=== PATIENT | female | born 1985 | race American Indian/Alaskan Native ===

== ENCOUNTER 2017-05-17 22:58 | Inpatient (IN) | payer BC ==
[2017-05-18 01:03] LABS: Basophils % (Auto) 0.7 % (0.0-1.8); Eosinophils % (Auto) 6.8 % (0.0-4.3); Hematocrit 44.5 % (30.3-42.9); Hemoglobin 14.4 gm/dl (10.1-14.3); Mean Corpuscular HGB Conc 32 % (30-34); Mean Corpuscular Hemoglobin 33 pg (28-32); Mean Corpuscular Volume 101 fl (79-97); Platelet Count 155 K/mm3 (140-440); Red Blood Count 4.42 M/mm3 (3.65-5.03); Red Cell Distribution Width 13.6 % (13.2-15.2); White Blood Count 11.6 K/mm3 (4.5-11.0)
[2017-05-18 01:28] LABS: BUN/Creatinine Ratio 26.66; Blood Urea Nitrogen 16 mg/dL (7-17); Calcium 9.3 mg/dL (8.4-10.2); Carbon Dioxide 17 mmol/L (22-30); Glucose 123 mg/dL (65-100); Sodium 135 mmol/L (137-145)
[2017-05-18 01:51] LABS: Anion Gap 21 mmol/L; Potassium 5.5 mmol/L (3.6-5.0)
[2017-05-18] MEDS ORDERED: DILAUDID IV ONE ×4 (06:37→11:45)
[2017-05-18] MEDS ORDERED: NACL 0.9% 1000 ML 1,000 ML IV ONE ×2 (06:37→09:18)
[2017-05-18] MEDS ORDERED: ZOFRAN IV ONE ×2 (06:37→08:52)
[2017-05-18 07:13] LABS: BUN/Creatinine Ratio 21.66; Blood Urea Nitrogen 13 mg/dL (7-17); Calcium 9.1 mg/dL (8.4-10.2); Carbon Dioxide 26 mmol/L (22-30); Chloride 101.1 mmol/L (98-107); Glucose 108 mg/dL (65-100); Potassium 4.2 mmol/L (3.6-5.0); Sodium 140 mmol/L (137-145)
[2017-05-18] MEDS ORDERED: NACL ONE (07:13)
[2017-05-18 07:23] LABS: Anion Gap 17 mmol/L
--- NOTE | 2017-05-18 07:24 | Emergency Department Report ---
ED GI Bleed HPI - General Chief complaint: GI Bleed Stated complaint: RECTAL BLEEDING/ABD PAIN Time Seen by Provider: 05/18/17 06:16 Source: patient Mode of arrival: Ambulatory Limitations: No Limitations - History of Present Illness Initial comments: 31-year-old female with a past medical history GERD, IBS, 2 and salpingectomy presents to the hospital with complaints of rectal bleeding, abdominal pain, and constipation. Patient has been suffering from intermittent constipation and rectal bleeding 2 months and has been out of emergency departments. Today patient saw Dr. Fang GI specialist and was prescribed Metamucil and Colace for constipation. Patient had 2 small hard bowel movements after taking the medication that were bloody. The patient continued to have bright red blood per rectum with passage of gas but no stool patient called her GI doctor was advised to come to the ER for evaluation.. Patient complains of burning constant lower abdominal pain that is moderate to severe in intensity. Pain is worse with palpation and movement. No relieving factors. No nausea, vomiting, or fever Severity scale (0 -10): 8 - Related Data Previous Rx's Medication Instructions Recorded Last Taken Type ALBUTEROL Inhaler [ProAir HFA 2 puff IH QID PRN #1 inhalation 05/05/14 Unknown Rx Inhaler] Albuterol *Only Ed* [Proventil 2.5 mg IH Q4H PRN #1 box 05/05/14 Unknown Rx 0.5% NEBS] Prednisone [Prednisone 10 mg 10 mg PO .TAPER #1 tab.ds.pk 05/05/14 Unknown Rx (6-Day Pack, 21 Tabs)] Ibuprofen [Motrin 600 MG tab] 600 mg PO Q8H PRN #20 tablet 06/18/15 Unknown Rx Allergies Allergy/AdvReac Type Severity Reaction Status Date / Time Penicillins Allergy Swelling Verified 05/05/14 14:54 ED Review of Systems ROS: Stated complaint: RECTAL BLEEDING/ABD PAIN Other details as noted in HPI Comment: All other systems reviewed and negative Other: Constitutional: No fevers chills or weight loss Eyes: No eye pain visual changes or discharge ENT: No ear pain or throat pain Neck: Denies pain Respiratory: Denies cough wheezing shortness of breath Cardiovascular: Denies chest pain, palpitations, syncope GI: Positive rectal pain Musculoskeletal: Denies back pain Skin: Denies rash, lesions, erythema Neurologic: Denies headache, numbness, weakness Psychiatric: Denies suicidal ideation, hallucinations ED Past Medical Hx - Past Medical History Hx Asthma: Yes Additional medical history: GERD. IBS - Surgical History Additional Surgical History: x 2, both tubes removed. Adrenal tumor removal - Social History Smoking Status: Current Every Day Smoker Substance Use Type: Alcohol - Medications Home Medications: Home Medications Medication Instructions Recorded Confirmed Last Taken Type ALBUTEROL Inhaler [ProAir HFA 2 puff IH QID PRN #1 inhalation 05/05/14 Unknown Rx Inhaler] Albuterol *Only Ed* [Proventil 2.5 mg IH Q4H PRN #1 box 05/05/14 Unknown Rx 0.5% NEBS] Prednisone [Prednisone 10 mg 10 mg PO .TAPER #1 tab.ds.pk 05/05/14 Unknown Rx (6-Day Pack, 21 Tabs)] Ibuprofen [Motrin 600 MG tab] 600 mg PO Q8H PRN #20 tablet 06/18/15 Unknown Rx ED Physical Exam - General Limitations: No Limitations - Other Other exam information: General: No limitations, patient is alert in no acute distress Head exam: Atraumatic, normocephalic Eyes exam: Normal appearance, pupils equal reactive to light, extraocular movements intact ENT: Moist mucous membrane, normal oropharynx Neck exam: Normal inspection, full range of motion, no meningismus nontender Respiratory exam: Clear to auscultation bilateral, no wheezes, rales, crackles Cardiovascular: Normal rate and rhythm, normal heart sounds Abdomen: Soft, positive distention, generalized abdominal tenderness worse in the lower abdomen, with normal bowel sounds, no rebound, or guarding Rectal: Positive significant anal pain with examination. Did not visualize anal fissure. She cannot tolerate digital examination. Brown stool obtained at the outside of the anus that was guaiac positive. Extremity: Full range of motion normal inspection no deformity Back: Normal Inspection, full range of motion, no tenderness Neurologic: Alert, oriented x3, cranial nerves intact, no motor or sensory deficit Psychiatric: normal affect, normal mood Skin: Warm, dry, intact ED Course Vital Signs 05/18/17 05/18/17 05/18/17 06:07 06:35 08:59 Pulse Rate 67 71 64 Respiratory 14 15 12 Rate Blood Pressure 102/58 Blood Pressure 95/31 97/58 [Left] O2 Sat by Pulse 98 100 100 Oximetry 05/18/17 05/18/17 05/18/17 09:00 09:01 09:03 Pulse Rate 59 L 61 62 Respiratory 15 18 17 Rate Blood Pressure 93/49 93/49 93/49 Blood Pressure [Left] O2 Sat by Pulse 100 100 100 Oximetry 05/18/17 05/18/17 05/18/17 09:05 09:07 09:09 Pulse Rate 66 66 74 Respiratory 18 17 12 Rate Blood Pressure 93/49 93/49 102/57 Blood Pressure [Left] O2 Sat by Pulse 100 100 100 Oximetry 05/18/17 05/18/17 05/18/17 09:10 09:11 09:13 Pulse Rate 61 66 61 Respiratory 16 10 L 19 Rate Blood Pressure 102/57 102/57 102/57 Blood Pressure [Left] O2 Sat by Pulse 100 100 100 Oximetry 05/18/17 05/18/17 05/18/17 09:15 09:17 09:19 Pulse Rate 65 60 88 Respiratory 18 17 16 Rate Blood Pressure 102/57 102/57 102/57 Blood Pressure [Left] O2 Sat by Pulse 99 100 100 Oximetry 05/18/17 05/18/17 05/18/17 09:21 09:23 09:25 Pulse Rate 64 66 64 Respiratory 18 18 14 Rate Blood Pressure 102/57 102/57 102/57 Blood Pressure [Left] O2 Sat by Pulse 100 99 100 Oximetry 05/18/17 05/18/17 05/18/17 09:27 09:29 09:31 Pulse Rate 60 68 65 Respiratory 16 16 15 Rate Blood Pressure 102/57 102/57 102/57 Blood Pressure [Left] O2 Sat by Pulse 100 99 99 Oximetry 05/18/17 05/18/17 05/18/17 09:33 09:35 09:37 Pulse Rate 71 68 71 Respiratory 17 16 15 Rate Blood Pressure 102/57 102/57 102/57 Blood Pressure [Left] O2 Sat by Pulse 98 99 99 Oximetry 05/18/17 05/18/17 05/18/17 09:39 09:41 09:43 Pulse Rate 67 79 77 Respiratory 16 15 16 Rate Blood Pressure 102/57 102/57 102/57 Blood Pressure [Left] O2 Sat by Pulse 100 99 99 Oximetry 05/18/17 05/18/17 05/18/17 09:45 09:47 09:49 Pulse Rate 71 72 68 Respiratory 12 16 13 Rate Blood Pressure 102/57 102/57 102/57 Blood Pressure [Left] O2 Sat by Pulse 99 99 99 Oximetry 05/18/17 05/18/17 05/18/17 09:51 09:53 09:55 Pulse Rate 76 70 89 Respiratory 19 17 14 Rate Blood Pressure 102/57 102/57 102/57 Blood Pressure [Left] O2 Sat by Pulse 86 100 89 Oximetry 05/18/17 05/18/17 05/18/17 09:56 09:57 09:59 Pulse Rate 68 57 L 68 Respiratory 16 17 17 Rate Blood Pressure 102/57 102/57 102/57 Blood Pressure [Left] O2 Sat by Pulse 100 99 99 Oximetry 05/18/17 05/18/17 05/18/17 10:00 10:01 10:03 Pulse Rate 66 64 69 Respiratory 15 16 16 Rate Blood Pressure 101/54 101/54 101/54 Blood Pressure [Left] O2 Sat by Pulse 99 99 99 Oximetry 05/18/17 05/18/17 05/18/17 10:05 10:07 10:09 Pulse Rate 61 67 61 Respiratory 14 16 14 Rate Blood Pressure 101/54 101/54 101/54 Blood Pressure [Left] O2 Sat by Pulse 98 98 100 Oximetry 05/18/17 05/18/17 05/18/17 10:11 10:13 10:15 Pulse Rate 65 65 66 Respiratory 13 16 17 Rate Blood Pressure 101/54 101/54 101/54 Blood Pressure [Left] O2 Sat by Pulse 99 99 99 Oximetry 05/18/17 05/18/17 05/18/17 10:17 10:19 10:21 Pulse Rate 65 64 69 Respiratory 14 14 13 Rate Blood Pressure 101/54 101/54 101/54 Blood Pressure [Left] O2 Sat by Pulse 100 99 99 Oximetry 05/18/17 05/18/17 05/18/17 10:23 10:25 10:27 Pulse Rate 66 59 L 61 Respiratory 12 15 15 Rate Blood Pressure 101/54 101/54 101/54 Blood Pressure [Left] O2 Sat by Pulse 100 100 99 Oximetry 05/18/17 10:29 Pulse Rate 56 L Respiratory 16 Rate Blood Pressure 101/54 Blood Pressure [Left] O2 Sat by Pulse 100 Oximetry - Reevaluation(s) Reevaluation #1: 05/18/17 07:23 Meds ordered Pain: Dilaudid 0.5 mg, Zofran Normal saline CT pending 05/18/17 12:07 pt continues to have significant pain despite was noted to Dilaudid, Levsin, and Zofran - Consultations Consultation #1: 05/18/17 12:07 Case D/w Yoder. Patient likely safe for discharge. Does not recommend narcotics. Levsin is recommended, Elavil 10mg qhs, and outpatient follow-up ED Medical Decision Making - Lab Data Result diagrams: 05/18/17 00:41 05/18/17 06:43 Lab Results 05/18/17 05/18/17 05/18/17 Range/Units 00:41 00:41 06:43 WBC 11.6 H (4.5-11.0) K/mm3 RBC 4.42 (3.65-5.03) M/mm3 Hgb 14.4 H (10.1-14.3) gm/dl Hct 44.5 H (30.3-42.9) % MCV 101 H (79-97) fl MCH 33 H (28-32) pg MCHC 32 (30-34) % RDW 13.6 (13.2-15.2) % Plt Count 155 (140-440) K/mm3 Lymph % (Auto) 38.2 H (13.4-35.0) % Cobb % (Auto) 8.7 H (0.0-7.3) % Eos % (Auto) 6.8 H (0.0-4.3) % Baso % (Auto) 0.7 (0.0-1.8) % Lymph # 4.4 (1.2-5.4) K/mm3 Cobb # 1.0 H (0.0-0.8) K/mm3 Eos # 0.8 H (0.0-0.4) K/mm3 Baso # 0.1 (0.0-0.1) K/mm3 Seg Neutrophils % 45.6 (40.0-70.0) % Seg Neutrophils # 5.3 (1.8-7.7) K/mm3 Sodium 135 L 140 (137-145) mmol/L Potassium 5.5 H 4.2 D (3.6-5.0) mmol/L Chloride 103.0 101.1 (98-107) mmol/L Carbon Dioxide 17 L 26 D (22-30) mmol/L Anion Gap 21 17 mmol/L BUN 16 13 (7-17) mg/dL Creatinine 0.6 L 0.6 L (0.7-1.2) mg/dL Estimated GFR > 60 > 60 ml/min BUN/Creatinine Ratio 26.66 21.66 % Glucose 123 H 108 H (65-100) mg/dL Calcium 9.3 9.1 (8.4-10.2) mg/dL HCG, Qual (Negative) Urine Color (Yellow) Urine Turbidity (Clear) Urine pH (5.0-7.0) Ur Specific [place] (1.003-1.030) Urine Protein (Negative) mg/dL Urine Glucose (UA) (Negative) mg/dL Urine Ketones (Negative) mg/dL Urine Blood (Negative) Urine Nitrite (Negative) Urine Bilirubin (Negative) Urine Urobilinogen (<2.0) mg/dL Ur Leukocyte Esterase (Negative) Urine WBC (Auto) (0.0-6.0) /HPF Urine RBC (Auto) (0.0-6.0) /HPF U Epithel Cells (Auto) (0-13.0) /HPF Urine Mucus /HPF Urine HCG, Qual (Negative) 05/18/17 05/18/17 Range/Units 06:43 09:00 WBC (4.5-11.0) K/mm3 RBC (3.65-5.03) M/mm3 Hgb (10.1-14.3) gm/dl Hct (30.3-42.9) % MCV (79-97) fl MCH (28-32) pg MCHC (30-34) % RDW (13.2-15.2) % Plt Count (140-440) K/mm3 Lymph % (Auto) (13.4-35.0) % Cobb % (Auto) (0.0-7.3) % Eos % (Auto) (0.0-4.3) % Baso % (Auto) (0.0-1.8) % Lymph # (1.2-5.4) K/mm3 [place] # (0.0-0.8) K/mm3 Eos # (0.0-0.4) K/mm3 Baso # (0.0-0.1) K/mm3 Seg Neutrophils % (40.0-70.0) % Seg Neutrophils # (1.8-7.7) K/mm3 Sodium (137-145) mmol/L Potassium (3.6-5.0) mmol/L Chloride (98-107) mmol/L Carbon Dioxide (22-30) mmol/L Anion Gap mmol/L BUN (7-17) mg/dL Creatinine (0.7-1.2) mg/dL Estimated GFR ml/min BUN/Creatinine Ratio % Glucose (65-100) mg/dL Calcium (8.4-10.2) mg/dL HCG, Qual Negative (Negative) Urine Color Straw (Yellow) Urine Turbidity Clear (Clear) Urine pH 6.0 (5.0-7.0) Ur Specific [place] 1.044 H (1.003-1.030) Urine Protein <15 mg/dl (Negative) mg/dL Urine Glucose (UA) Neg (Negative) mg/dL Urine Ketones Neg (Negative) mg/dL Urine Blood Neg (Negative) Urine Nitrite Neg (Negative) Urine Bilirubin Neg (Negative) Urine Urobilinogen < 2.0 (<2.0) mg/dL Ur Leukocyte Esterase Neg (Negative) Urine WBC (Auto) < 1.0 (0.0-6.0) /HPF Urine RBC (Auto) 1.0 (0.0-6.0) /HPF U Epithel Cells (Auto) 1.0 (0-13.0) /HPF Urine Mucus Few /HPF Urine HCG, Qual Negative (Negative) - Radiology Data Radiology results: report reviewed (CT abdomen and pelvis IV contrast: No acute process.) - Medical Decision Making I'm unable to control patient's pain will be treated. Although narcotics are not the best treatment for IBS patient is very uncomfortable in the ED. She is not responding to any other treatment. Therefore, she will be admitted to the hospital for further pain control - Differential Diagnosis IBS, Crohn's, colitis, anal fissure, hemorrhoids, diverticulosis Critical Care Time: No Critical care attestation.: If time is entered above; I have spent that time in minutes in the direct care of this critically ill patient, excluding procedure time. ED Disposition Clinical Impression: Intractable abdominal pain, Rectal pain, IBS (irritable bowel syndrome), Rectal bleed Disposition: OP ADMIT IP TO THIS HOSP Is pt being admited?: Yes Condition: Stable Time of Disposition: 12:07 (Dr Castro/hosp)
--- NOTE | 2017-05-18 08:12 | Cat Scan Report ---
FINAL REPORT EXAM: CT ABDOMEN PELVIS W CON HISTORY: rectal pain, abd pain, rectal bleed, ibs TECHNIQUE: CT images are acquired through the Abdomen and Pelvis in arterial and delayed phase following intravenous administration of contrast. Transaxial, coronal and sagittal reformations are provided. PRIORS: None FINDINGS: Partially visualized intrathoracic contents are unremarkable. A 6 millimeter calcification is present in the region of the atrophic/absent right adrenal gland. This finding may be secondary to remote hemorrhage. The liver, gallbladder, pancreas, spleen, and left adrenal gland are unremarkable. Kidneys show no worrisome lesions, hydronephrosis, or calculi. Urinary bladder is unremarkable. Small and large bowel are normal in caliber. Appendix is normal. No free air, free fluid, or lymphadenopathy identified. Aorta is normal in course and caliber.Anteverted uterus. No significant free fluid in the pelvis. Superficial soft tissues are unremarkable. No acute or aggressive appearing skeletal findings. IMPRESSION: No acute intra-abdominal process. Specifically, CT appearance of the intestines is unremarkable. Consider endoscopy as warranted.
[2017-05-18 09:17] LABS: Bilirubin,Urine NEG (Negative); Blood,Urine NEG (Negative); Ketones,Urine NEG (Negative); Leukocyte Esterase,Urine NEG (Negative); Mucus,Urine FEW /HPF; Nitrite,Urine NEG (Negative); Protein,Urine <15 mg/dL mg/dL (Negative); Urobilinogen,Urine < 2.0 mg/dL (<2.0); WBC,Urine < 1.0 /HPF (0.0-6.0)
[2017-05-18] MEDS ORDERED: LEVSIN (NF) PO ONE (09:46)
[2017-05-18] MEDS ORDERED: LEVSIN SL SL ONE (11:00)
--- NOTE | 2017-05-18 12:04 | History and Physical Report ---
History of Present Illness Chief complaint: my stomach hurts, im constipated, and i have blood in my stool History of present illness: 31 YO Female with GERD, IBS, MO, Nicotine Dependence presents to ED for evaluation. Pt states that she has experienced intermittent abdominal pain, and constipation, and rectal bleeding for the past 5 years with worsening symptoms over the past 2 months. Pt states that she has experienced 4 episodes of rectal bleeding over the past week in conjunction with small bowel movements. Pt also complains of abdominal pain, 8/10 in severity, diffuse, nonradiating, constant, without aggravating, or relieving factors. Pt denies fever, chills, palpitations , ingestion of food/water from new or different sources. Past History Past Medical History: GERD, other (IBS,MO, Nicotine Dependence) Past Surgical History: , Other (adrenal tumor excision) Social history: , lives with family, smoking. denies: alcohol abuse, prescription drug abuse, IV drug use Family history: hypertension Medications and Allergies Allergies Allergy/AdvReac Type Severity Reaction Status Date / Time Penicillins Allergy Swelling Verified 05/05/14 14:54 Home Medications Medication Instructions Recorded Confirmed Last Taken Type ALBUTEROL Inhaler [ProAir HFA 2 puff IH QID PRN #1 inhalation 05/05/14 Unknown Rx Inhaler] Albuterol *Only Ed* [Proventil 2.5 mg IH Q4H PRN #1 box 05/05/14 Unknown Rx 0.5% NEBS] Prednisone [Prednisone 10 mg 10 mg PO .TAPER #1 tab.ds.pk 05/05/14 Unknown Rx (6-Day Pack, 21 Tabs)] Ibuprofen [Motrin 600 MG tab] 600 mg PO Q8H PRN #20 tablet 06/18/15 Unknown Rx Review of Systems Constitutional: no weight loss, no weight gain, no fever, no chills Ears, nose, mouth and throat: no ear pain, no ear discharge, no tinnitis, no decreased hearing, no nose pain Breasts: no change in shape, no swelling, no mass Cardiovascular: no chest pain, no orthopnea, no palpitations, no rapid/ irregular heart beat, no edema Respiratory: no cough, no cough with sputum, no excessive sputum, no hemoptysis , no shortness of breath Gastrointestinal: abdominal pain, constipation, hematochezia Genitourinary Female: no dysmenorrhea, no pelvic pain, no flank pain, no menorrhagia, no dysuria Rectal: no pain, no incontinence, no bleeding Musculoskeletal: no neck stiffness, no neck pain, no shooting arm pain, no arm numbness/tingling, no low back pain, no shooting leg pain Integumentary: no rash, no pruritis, no redness, no sores, no wounds Neurological: no head injury, no transient paralysis, no paralysis, no weakness , no parathesias, no numbness, no tingling Psychiatric: anxiety, no memory loss, no change in sleep habits, no sleep disturbances, no insomnia, no hypersomnia, no change in appetite, no change in libido Endocrine: no cold intolerance, no heat intolerance, no polyphagia, no excessive thirst, no polydipsia, no polyuria Hematologic/Lymphatic: no easy bruising, no easy bleeding Allergic/Immunologic: no urticaria, no allergic rhinitis, no wheezing Exam - Constitutional Vitals: Temp Pulse Resp BP Pulse Ox 56 L 16 101/54 100 05/18/17 10:29 05/18/17 10:29 05/18/17 10:29 05/18/17 10:29 General appearance: Present: mild distress - EENT Eyes: Present: PERRL ENT: hearing intact, clear oral mucosa - Neck Neck: Present: supple, normal ROM - Respiratory Respiratory effort: normal Respiratory: bilateral: CTA - Cardiovascular Heart Sounds: Present: S1 & S2. Absent: rub, click - Extremities Extremities: pulses symmetrical, No edema Peripheral Pulses: within normal limits - Abdominal General gastrointestinal: Present: soft, tender, non-distended, normal bowel sounds. Absent: hepatomegaly, splenomegaly, mass, hernia, other Female genitourinary: Present: normal - Integumentary Integumentary: Present: clear, warm, dry - Musculoskeletal Musculoskeletal: gait normal, strength equal bilaterally - Psychiatric Psychiatric: appropriate mood/affect, intact judgment & insight - Neurologic Neurologic: CNII-XII intact, moves all extremities Results - Labs CBC & Chem 7: 05/18/17 00:41 05/18/17 06:43 Labs: Abnormal lab results 05/18/17 05/18/17 05/18/17 Range/Units 00:41 00:41 06:43 WBC 11.6 H (4.5-11.0) K/mm3 Hgb 14.4 H (10.1-14.3) gm/dl Hct 44.5 H (30.3-42.9) % MCV 101 H (79-97) fl MCH 33 H (28-32) pg Lymph % (Auto) 38.2 H (13.4-35.0) % [place] % (Auto) 8.7 H (0.0-7.3) % Eos % (Auto) 6.8 H (0.0-4.3) % [place] # 1.0 H (0.0-0.8) K/mm3 Eos # 0.8 H (0.0-0.4) K/mm3 Sodium 135 L (137-145) mmol/L Potassium 5.5 H (3.6-5.0) mmol/L Carbon Dioxide 17 L (22-30) mmol/L Creatinine 0.6 L 0.6 L (0.7-1.2) mg/dL Glucose 123 H 108 H (65-100) mg/dL Ur Specific [place] (1.003-1.030) 05/18/17 Range/Units 09:00 WBC (4.5-11.0) K/mm3 Hgb (10.1-14.3) gm/dl Hct (30.3-42.9) % MCV (79-97) fl MCH (28-32) pg Lymph % (Auto) (13.4-35.0) % [place] % (Auto) (0.0-7.3) % Eos % (Auto) (0.0-4.3) % [place] # (0.0-0.8) K/mm3 Eos # (0.0-0.4) K/mm3 Sodium (137-145) mmol/L Potassium (3.6-5.0) mmol/L Carbon Dioxide (22-30) mmol/L Creatinine (0.7-1.2) mg/dL Glucose (65-100) mg/dL Ur Specific [place] 1.044 H (1.003-1.030) Assessment and Plan - Patient Problems (1) IBS (irritable bowel syndrome) Current Visit: Yes Status: Acute Qualifiers: Irritable bowel syndrome type: I Plan to address problem: constipation predominant: IVF resuscitation, Start elavil, Pt counseled, bowel regimen (2) Rectal bleed Current Visit: Yes Status: Acute Plan to address problem: No transfusion at this time. Pt discussed with GI physician. No intervention at this time. Pt seeen and evaluated by GI service and will be seen in GI office as outpatient on Saturday. Pt has outpatient endoscopy scheduled. (3) Metabolic acidemia Current Visit: Yes Status: Acute Plan to address problem: IVF replacement, monitor uop q shift, repeat bmp (4) SIRS (systemic inflammatory response syndrome) Current Visit: Yes Status: Acute Plan to address problem: IV abx, Ivf, supportive care. (5) Hyponatremia syndrome Current Visit: Yes Status: Acute Plan to address problem: IVF resuscitation, repeat bmp (6) DVT prophylaxis Current Visit: Yes Status: Acute
[2017-05-18] MEDS ORDERED: PROVENTIL IH PRN (12:24)
[2017-05-18] MEDS ORDERED: TYLENOL PO PRN (12:24)
[2017-05-18] MEDS ORDERED: CITRATE OF MAGNESIA PO ONE (12:27)
[2017-05-18] MEDS ORDERED: NACL 0.45% 1000 ML 1,000 ML IV SCH (13:00)
[2017-05-18] MEDS ORDERED: LEVAQUIN 500MG/100ML 500 MG/100 ML BAG IV SCH (15:00)
[2017-05-18] MEDS ORDERED: ELAVIL PO SCH (22:00)
[2017-05-19] MEDS ORDERED: ZOFRAN IV PRN (02:48)
--- NOTE | 2017-05-19 07:19 | Discharge Summary ---
Providers - Providers Date of Admission: 05/18/17 14:04 Attending physician: SHAHEED VARGHESE MD Primary care physician: BIJU WRIGHT MD Hospitalization Condition: Stable Hospital course: 31-year-old woman a past medical history of GERD, IBS, nicotine dependency presented to ED with intermittent abdominal pain and constipation and some rectal bleeding. She states that she had 4 episodes of rectal bleeding in the past week with small bowel movements, which she describes as hard rocks, and she is complaining of rectal soreness. She also complains of abdominal pain, these symptoms are chronic. She got scared when she saw blood in her stool contents come to the hospital. She was seen in the hospital, she had stable hemoglobin. She didn't have any further episodes of bleeding. Patient has an appointment with gastroenterology on Saturday05/21/17. She was advised to keep this appointment, she was discharged home in stable condition. She was also advised to continue taking stool softeners Discharge diagnoses GI bleed- due to anal fissure IBS GERD Disposition: - TO HOME OR SELFCARE Time spent for discharge: 33 minutes Core Measure Documentation - Palliative Care Palliative Care/ Comfort Measures: Not Applicable - Core Measures Any of the following diagnoses?: none Exam - Constitutional Vitals: Temp Pulse Resp BP Pulse Ox 99.2 F 57 L 20 88/46 100 05/18/17 23:35 05/18/17 23:35 05/18/17 23:35 05/18/17 23:35 05/18/17 23:35 General appearance: Present: no acute distress, well-nourished - EENT Eyes: Present: PERRL ENT: hearing intact, clear oral mucosa - Neck Neck: Present: supple, normal ROM - Respiratory Respiratory effort: normal Respiratory: bilateral: CTA - Cardiovascular Heart Sounds: Present: S1 & S2. Absent: rub, click - Extremities Extremities: pulses symmetrical, No edema Peripheral Pulses: within normal limits - Abdominal General gastrointestinal: Present: soft, non-tender, non-distended, normal bowel sounds Female genitourinary: Present: normal - Integumentary Integumentary: Present: clear, warm, dry - Musculoskeletal Musculoskeletal: gait normal, strength equal bilaterally - Psychiatric Psychiatric: appropriate mood/affect, intact judgment & insight - Neurologic Neurologic: CNII-XII intact, moves all extremities Plan Follow up with: PRIMARY CARE, [Primary Care Provider] - 3-5 Days Prescriptions: Dicyclomine [Bentyl] 10 mg PO QID PRN #30 capsule PRN Reason: abdominal pain
[2017-05-19 07:31] VITALS: BP 103/54
[2017-05-19 08:07] LABS: Hematocrit 37.5 % (30.3-42.9); Hemoglobin 12.8 gm/dl (10.1-14.3)
== END 2017-05-19 14:11 | disposition home or self-care (01) | DRG 394 ==
LOC: ED 22:58 → 3A 05-18 14:04
PROVIDERS: ADMIT Internal Medicine; ATTEND Internal Medicine
DX: K60.2 Anal fissure, unspecified (principal); E87.2 Acidosis; R65.10 Systemic inflammatory response syndrome (SIRS) of non-infectious origin without acute organ dysfunction; E87.1 Hypo-osmolality and hyponatremia; K62.5 Hemorrhage of anus and rectum; K58.9 Irritable bowel syndrome, unspecified; K21.9 Gastro-esophageal reflux disease without esophagitis; K59.00 Constipation, unspecified; F17.200 Nicotine dependence, unspecified, uncomplicated; Z82.49 Family history of ischemic heart disease and other diseases of the circulatory system; Z98.891 History of uterine scar from previous surgery
CPT/HCPCS: 36415; 74177; 80048; 81001; 81025; 82271; 84703; 85014; 85018; 85025; 96374; 96375; 96376; 99406; J1170; J1956; J2405; J7030; Q9967

== ENCOUNTER 2017-11-29 04:57 | Emergency (ER) | payer BC, OTHER ==
[2017-11-29 05:12] VITALS: BP 143/77
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
[2017-11-29] MEDS ORDERED: VALIUM PO ONE (08:00)
[2017-11-29 08:25] LABS: Basophils # (Auto) 0.1 K/mm3 (0.0-0.1); Basophils % (Auto) 0.8 % (0.0-1.8); Eosinophils # (Auto) 0.7 K/mm3 (0.0-0.4); Eosinophils % (Auto) 4.4 % (0.0-4.3); Hematocrit 40.9 % (30.3-42.9); Lymphocytes # (Auto) 4.1 K/mm3 (1.2-5.4); Lymphocytes % (Auto) 26.3 % (13.4-35.0); Mean Corpuscular HGB Conc 34 % (30-34); Mean Corpuscular Hemoglobin 33 pg (28-32); Mean Corpuscular Volume 96 fl (79-97); Monocytes % (Auto) 6.8 % (0.0-7.3); Platelet Count 154 K/mm3 (140-440); Red Blood Count 4.25 M/mm3 (3.65-5.03); Red Cell Distribution Width 13.3 % (13.2-15.2)
[2017-11-29] MEDS ORDERED: NORCO 5/325 PO NR (08:30)
[2017-11-29 08:40] LABS: Alanine Aminotransferase 8 units/L (7-56); Albumin 4.2 g/dL (3.9-5); BUN/Creatinine Ratio 13; Blood Urea Nitrogen 9 mg/dL (7-17); Calcium 8.8 mg/dL (8.4-10.2); Hemolysis Index 2
[2017-11-29 08:41] LABS: Bilirubin,Direct < 0.2 mg/dL (0-0.2)
[2017-11-29 08:59] LABS: Bilirubin,Urine NEG (Negative); Blood,Urine NEG (Negative); Color,Urine Yellow (Yellow); Mucus,Urine FEW /HPF; Protein,Urine <15 mg/dL mg/dL (Negative); WBC,Urine < 1.0 /HPF (0.0-6.0)
[2017-11-29 09:01] LABS: HCG Qualitative,Urine Negative (Negative)
[2017-11-29 12:34] LABS: Hepatitis A Antibody IgM Non-Reactive (NonReactive); Hepatitis B Core IgM Non-Reactive (NonReactive); Hepatitis B Surface Antigen Non-Reactive (Negative); Hepatitis C Virus Antibody Non-Reactive (NonReactive)
== END 2017-11-29 08:58 | disposition other institution (70) ==
LOC: ED 04:57
DX: T74.21XA Adult sexual abuse, confirmed, initial encounter (principal); M79.1 Myalgia; J45.909 Unspecified asthma, uncomplicated; F17.200 Nicotine dependence, unspecified, uncomplicated; Y07.9 Unspecified perpetrator of maltreatment and neglect
CPT/HCPCS: 36415; 80048; 80074; 81001; 81025; 85025; 86695; 86696; 87806; 99283

== ENCOUNTER 2017-12-12 02:19 | Emergency (ER) | payer OTHER ==
[2017-12-12 02:33] VITALS: BP 140/83
[2017-12-12 03:02] LABS: Basophils # (Auto) 0.1 K/mm3 (0.0-0.1); Eosinophils # (Auto) 0.6 K/mm3 (0.0-0.4); Eosinophils % (Auto) 6.1 % (0.0-4.3); Hematocrit 38.7 % (30.3-42.9); Hemoglobin 13.6 gm/dl (10.1-14.3); Lymphocytes % (Auto) 39.9 % (13.4-35.0); Mean Corpuscular HGB Conc 35 % (30-34); Mean Corpuscular Hemoglobin 34 pg (28-32); Mean Corpuscular Volume 96 fl (79-97); Monocytes # (Auto) 0.7 K/mm3 (0.0-0.8); Platelet Count 176 K/mm3 (140-440); Red Blood Count 4.04 M/mm3 (3.65-5.03); Red Cell Distribution Width 13.6 % (13.2-15.2)
[2017-12-12 03:53] LABS: BUN/Creatinine Ratio 15; Blood Urea Nitrogen 12 mg/dL (7-17); Calcium 8.5 mg/dL (8.4-10.2); Hemolysis Index 0
--- NOTE | 2017-12-12 06:23 | Emergency Department Report ---
History of Present Illness - General Chief Complaint: Overdose Stated Complaint: OD Time Seen by Provider: 12/12/17 06:07 Source: patient Mode of arrival: Ambulatory Limitations: No Limitations - History of Present Illness Initial Comments: Patient is a 32-year-old female that presented to the emergency room with complaints of taking too many medications for her headache. Patient states that he had a very bad headache and approximately at midnight patient took 3 200 mg of Advil, 6 - 800 mg ibuprofen, some tramadol and some BC powders. Patient states that she was not trying to hurt herself she was just trying to rid of her headache. Patient states that she developed palpitations and abdominal pain in the epigastric region since taking those medications. Patient denies homicidal and suicidal ideations. Patient denies depression and anxiety. Patient denies chest pain. Patient states her headache is still 10/ 10. Patient states that the abdominal pain is in the epigastric region elicits 10. And feels like a burning sensation. Patient describes headache as a migraine. Positive visual changes. Positive nausea and vomiting. Positive aura. MD Complaint: accidental overdose -: Gradual Intent: other How Overdose Was Discovered: family/friend present Context: Intentional Overdose: other (millan) Context: Accidental Overdose: medication error Associated Symptoms: headaches, nausea/vomiting, abdominal pain Treatments Prior to Arrival: none - Related Data Previous Rx's Medication Instructions Recorded Last Taken Type Amitriptyline [Elavil] 10 mg PO QHS #30 tablet 05/19/17 Unknown Rx Dicyclomine [Bentyl] 10 mg PO QID PRN #30 capsule 05/19/17 Unknown Rx Esomeprazole Magnesium [NexIUM 40 mg PO DAILY 10 Days #10 12/12/17 Unknown Rx 24Hr] capsule. Ondansetron [Zofran Odt] 4 mg PO Q8HR PRN #15 tab.rapdis 12/12/17 Unknown Rx methylPREDNISolone [Medrol] 4 mg PO DAILY 6 Days #1 tab.ds.pk 12/12/17 Unknown Rx Allergies Allergy/AdvReac Type Severity Reaction Status Date / Time Penicillins Allergy Swelling Verified 05/05/14 14:54 ED Review of Systems ROS: Stated complaint: OD Other details as noted in HPI Constitutional: denies: chills, fever Eyes: denies: eye pain, eye discharge, vision change ENT: denies: ear pain, throat pain Respiratory: denies: cough, shortness of breath, wheezing Cardiovascular: denies: chest pain, palpitations Endocrine: no symptoms reported Gastrointestinal: abdominal pain, nausea, vomiting. denies: diarrhea Genitourinary: denies: urgency, dysuria, discharge Musculoskeletal: denies: back pain, joint swelling, arthralgia Skin: denies: rash, lesions Neurological: headache. denies: weakness, paresthesias Psychiatric: denies: anxiety, depression Hematological/Lymphatic: denies: easy bleeding, easy bruising ED Past Medical Hx - Past Medical History Previous Medical History?: Yes Hx Congestive Heart Failure: No Hx Diabetes: No Hx Pulmonary Embolism: No Hx Asthma: Yes Hx COPD: No Additional medical history: GERD. IBS - Surgical History Past Surgical History?: Yes Additional Surgical History: x 2, both tubes removed. Adrenal tumor removal - Family History Family history: hypertension - Social History Smoking Status: Current Every Day Smoker Substance Use Type: None - Medications Home Medications: Home Medications Medication Instructions Recorded Confirmed Last Taken Type Amitriptyline [Elavil] 10 mg PO QHS #30 tablet 05/19/17 Unknown Rx Dicyclomine [Bentyl] 10 mg PO QID PRN #30 capsule 05/19/17 Unknown Rx Esomeprazole Magnesium [NexIUM 40 mg PO DAILY 10 Days #10 12/12/17 Unknown Rx 24Hr] capsule. Ondansetron [Zofran Odt] 4 mg PO Q8HR PRN #15 tab.rapdis 12/12/17 Unknown Rx methylPREDNISolone [Medrol] 4 mg PO DAILY 6 Days #1 tab.ds.pk 12/12/17 Unknown Rx ED Physical Exam - General Limitations: No Limitations General appearance: alert, in no apparent distress - Head Head exam: Present: atraumatic, normocephalic - Eye Eye exam: Present: normal appearance - ENT ENT exam: Present: mucous membranes moist - Neck Neck exam: Present: normal inspection - Respiratory Respiratory exam: Present: normal lung sounds bilaterally. Absent: respiratory distress - Cardiovascular Cardiovascular Exam: Present: regular rate, normal rhythm. Absent: systolic murmur, diastolic murmur, rubs, gallop - GI/Abdominal GI/Abdominal exam: Present: soft, tenderness (generalized ttp./ ), normal bowel sounds - Extremities Exam Extremities exam: Present: normal inspection - Back Exam Back exam: Present: normal inspection - Neurological Exam Neurological exam: Present: alert, oriented X3 - Psychiatric Psychiatric exam: Present: normal affect, normal mood - Skin Skin exam: Present: warm, dry, intact, normal color. Absent: rash ED Course Vital Signs 12/12/17 12/12/17 02:27 07:23 Temperature 98.1 F Pulse Rate 111 H Respiratory 20 20 Rate Blood Pressure 140/83 O2 Sat by Pulse 99 Oximetry - Reevaluation(s) Reevaluation #1: JENNA ZAVALA Female : 1985 MedRec# [id number] 12/12/17 02:56 - Nurse Note by DEREK [employer] Acct Num: [id number] : 1985 Patient Age: 32 Poison control called and spoke to Cristo who recommended supportive care, monitoring and venous ph. Tylenol and Aspirin levels to be done in 4 hours. Initialized on 12/12/17 02:56 - END OF NOTE Above note reviewed from poison control... 12/12/17 06:21 ED Medical Decision Making - Lab Data Result diagrams: 12/12/17 02:52 12/12/17 06:50 - Medical Decision Making Discussed all results with patient. Patient stable for discharge. Will discharge patient home with discharge instructions. Patient to stop all forms of NSAIDs and ibuprofen. Patient to follow-up with primary care in 5 days.. - Differential Diagnosis accidental overdose. Headache, migraine, abdominal pain, gastritis Critical care attestation.: If time is entered above; I have spent that time in minutes in the direct care of this critically ill patient, excluding procedure time. ED Disposition Clinical Impression: Accidental overdose, Headache, Abdominal pain, Migraine, Gastritis Disposition: -01 TO HOME OR SELFCARE Is pt being admited?: No Does the pt Need Aspirin: No Condition: Stable Instructions: Gastritis (ED), Migraine Headache (ED), Diet for Ulcers and Gastritis (ED), Acute Headache (ED) Additional Instructions: Patient to follow-up with primary care in 3-5 days. Patient to follow up with neurologist in 3-5 days. Patient to take Tylenol when necessary for pain patient to avoid ibuprofen. Patient take medications as directed. Patient to increase fluids. Patient to rest. Patient to return to ER if condition worsens. Patient to follow up with neurologist for headache management. Prescriptions: Esomeprazole Magnesium [NexIUM 24Hr] 40 mg PO DAILY 10 Days #10 capsule.dr methylPREDNISolone [Medrol] 4 mg PO DAILY 6 Days #1 tab.ds.pk Ondansetron [Zofran Odt] 4 mg PO Q8HR PRN #15 tab.rapdis PRN Reason: Nausea And Vomiting Referrals: DUANE PAYTON MD [Primary Care Provider] - 3-5 Days Forms: AMA Form Time of Disposition: 10:07
[2017-12-12] MEDS ORDERED: ALUM-MAG HYDROX-SIMETH 200-200-20MG/5ML PO ONE (07:00)
[2017-12-12 07:20] LABS: Lipase 57 units/L (13-60)
--- NOTE | 2017-12-12 07:46 | Cat Scan Report ---
CT HEAD WITHOUT CONTRAST: HISTORY: Headache. TECHNIQUE: Sequential 2.5mm CT images. COMPARISON: none. FINDINGS: Cerebral Parenchyma: Within normal limits. Cerebellum: Within normal limits. Brainstem: Within normal limits. Ventricles: Normal. Sella: Normal. Extra-axial spaces: Normal. Basal Cisterns: Normal. Intracranial Hemorrhage: None. Midline Shift: None. Calvarium: Normal. Sinuses: Normal. Mastoid Air Cells: Normal. Visualized Orbits: Normal. IMPRESSION: Cranial CT scan within normal limits.
--- NOTE | 2017-12-12 07:51 | Cat Scan Report ---
CT ABDOMEN PELVIS WITHOUT CONTRAST: HISTORY: Abdominal pain. COMPARISON: 05/18/17. TECHNIQUE: Helical CT in 1.25mm intervals without IV contrast. Sagittal and coronal reconstructions. FINDINGS: Lung bases: Normal. Liver: Normal. Biliary system: Normal. Pancreas: Normal. Spleen: Normal. Kidneys/ureters/bladder: Normal. Adrenal glands: Normal. Aorta: Normal. Intestines: Normal. Appendix: Normal. Pelvic viscera: Normal. 2.1 cm Bartholin's gland cyst on the right side is noted. Ascites: None. Adenopathy: None. Musculoskeletal: Normal. IMPRESSION: Unremarkable CT scan of the abdomen and pelvis without contrast.
[2017-12-12] MEDS ORDERED: ALUM-MAG HYDROX-SIMETH 200-200-20MG/5ML ONE (09:04)
[2017-12-12 09:12] LABS: Alanine Aminotransferase 25 units/L (7-56); Albumin 4.1 g/dL (3.9-5); BUN/Creatinine Ratio 13; Blood Urea Nitrogen 12 mg/dL (7-17); Calcium 8.8 mg/dL (8.4-10.2); Hemolysis Index 0
== END 2017-12-12 10:35 | disposition home or self-care (01) ==
LOC: ED 02:19
DX: T39.311A Poisoning by propionic acid derivatives, accidental (unintentional), initial encounter (principal); T40.4X1A Poisoning by other synthetic narcotics, accidental (unintentional), initial encounter; T39.091A Poisoning by salicylates, accidental (unintentional), initial encounter; G43.909 Migraine, unspecified, not intractable, without status migrainosus; K29.70 Gastritis, unspecified, without bleeding; F17.200 Nicotine dependence, unspecified, uncomplicated; J45.909 Unspecified asthma, uncomplicated; K21.9 Gastro-esophageal reflux disease without esophagitis; Z88.0 Allergy status to penicillin; Z90.79 Acquired absence of other genital organ(s); Y92.89 Other specified places as the place of occurrence of the external cause
CPT/HCPCS: 36415; 70450; 74176; 80048; 80053; 82150; 82805; 83690; 84703; 85025; 93005; 93010; 99284; G0480; 80320

== ENCOUNTER 2019-04-18 06:48 | Emergency (ER) | payer OTHER ==
[2019-04-18 07:05] VITALS: BP 108/85
--- NOTE | 2019-04-18 08:43 | Emergency Department Report ---
ED General Adult HPI - General Chief complaint: Dental/Oral Stated complaint: MOUTH AND THROAT PAIN Time Seen by Provider: 04/18/19 07:42 Source: patient Mode of arrival: Ambulatory Limitations: No Limitations - History of Present Illness Initial comments: This is a 33-year-old female presents to ED complaining of dental pain for the past 2 days. Patient states that she was seen by her dentist earlier this week and was given prescribed, Motrin and antibiotics to take for a dental infection. Patient has a suspicious of follow-up with a dentist since May 21. Patient states that she has been taking the medication and the pain is not resolved. Patient denies any fever, trauma to the mouth or tooth. In the throat swelling or difficulty swallowing. - Related Data Previous Rx's Medication Instructions Recorded Last Taken Type Amitriptyline [Elavil] 10 mg PO QHS #30 tablet 05/19/17 Unknown Rx Dicyclomine [Bentyl] 10 mg PO QID PRN #30 capsule 05/19/17 Unknown Rx Esomeprazole Magnesium [NexIUM 40 mg PO DAILY 10 Days #10 12/12/17 Unknown Rx 24Hr] capsule. Ondansetron [Zofran Odt] 4 mg PO Q8HR PRN #15 tab.rapdis 12/12/17 Unknown Rx methylPREDNISolone [Medrol] 4 mg PO DAILY 6 Days #1 tab.ds.pk 12/12/17 Unknown Rx Acetaminophen/Codeine [Tylenol 1 tab PO Q6H #10 tab 04/18/19 Unknown Rx /Codeine # 3 tab] Allergies Allergy/AdvReac Type Severity Reaction Status Date / Time Penicillins Allergy Swelling Verified 05/05/14 14:54 ED Review of Systems ROS: Stated complaint: MOUTH AND THROAT PAIN Other details as noted in HPI Comment: All other systems reviewed and negative ED Past Medical Hx - Past Medical History Previous Medical History?: Yes Hx Congestive Heart Failure: No Hx Diabetes: No Hx Pulmonary Embolism: No Hx Asthma: Yes Hx COPD: No Additional medical history: GERD. IBS - Surgical History Past Surgical History?: Yes Additional Surgical History: x 2, both tubes removed. Adrenal tumor removal - Social History Smoking Status: Current Every Day Smoker Substance Use Type: None - Medications Home Medications: Home Medications Medication Instructions Recorded Confirmed Last Taken Type Amitriptyline [Elavil] 10 mg PO QHS #30 tablet 05/19/17 Unknown Rx Dicyclomine [Bentyl] 10 mg PO QID PRN #30 capsule 05/19/17 Unknown Rx Esomeprazole Magnesium [NexIUM 40 mg PO DAILY 10 Days #10 12/12/17 Unknown Rx 24Hr] capsule. Ondansetron [Zofran Odt] 4 mg PO Q8HR PRN #15 tab.rapdis 12/12/17 Unknown Rx methylPREDNISolone [Medrol] 4 mg PO DAILY 6 Days #1 tab.ds.pk 12/12/17 Unknown Rx Acetaminophen/Codeine [Tylenol 1 tab PO Q6H #10 tab 04/18/19 Unknown Rx /Codeine # 3 tab] ED Physical Exam - General Limitations: No Limitations General appearance: alert, in no apparent distress - Head Head exam: Present: atraumatic, normocephalic - Eye Eye exam: Present: normal appearance - ENT ENT exam: Present: mucous membranes moist - Expanded ENT Exam Expanded Mouth exam: Present: normal external inspection Teeth exam: Present: dental caries, dental tenderness #. Absent: gingival enlargement Throat exam: Positive: normal inspection. Negative: tonsillar erythema, tonsillomegaly, tonsillar exudate, R peritonsillar mass, L peritonsillar mass - Neck Neck exam: Present: normal inspection - Respiratory Respiratory exam: Present: normal lung sounds bilaterally. Absent: respiratory distress - Cardiovascular Cardiovascular Exam: Present: regular rate, normal rhythm. Absent: systolic murmur, diastolic murmur, rubs, gallop - GI/Abdominal GI/Abdominal exam: Present: soft, normal bowel sounds - Extremities Exam Extremities exam: Present: normal inspection - Back Exam Back exam: Present: normal inspection - Neurological Exam Neurological exam: Present: alert, oriented X3 - Psychiatric Psychiatric exam: Present: normal affect, normal mood - Skin Skin exam: Present: warm, dry, intact, normal color. Absent: rash ED Course Vital Signs 04/18/19 07:00 Temperature 98.5 F Pulse Rate 101 H Respiratory 16 Rate Blood Pressure 108/85 O2 Sat by Pulse 97 Oximetry ED Medical Decision Making - Medical Decision Making 33-year-old Presents with dental pain from infection. Patient is currently taking Motrin and clindamycin as prescribed by her dentist. Discussed the patient to continue taking medication as prescribed. Discussed the patient and I will add a Tylenol [facility]. Patient is in no acute distress so appears nontraumatic, numbness respiratory distress Patient states she has no appointment coming up follow up with her dentist on May 21. Discussed the Appointment and if any other issues to follow up with her dentist. Critical care attestation.: If time is entered above; I have spent that time in minutes in the direct care of this critically ill patient, excluding procedure time. ED Disposition Clinical Impression: Dental caries, Pain, dental Disposition: TO HOME OR SELFCARE Is pt being admited?: No Does the pt Need Aspirin: No Condition: Stable Instructions: Toothache (ED), Dental Caries (ED) Additional Instructions: Make sure to follow up with the dentist as discussed. Continue to take your Motrin and clindamycin as prescribed by your dentist Take your medications as you've been prescribed. If you have any worsening symptoms or develop new symptoms please return to ED immediately. Prescriptions: Acetaminophen/Codeine [Tylenol /Codeine # 3 tab] 1 tab PO Q6H #10 tab Referrals: CORINNA AUSTIN MD [Primary Care Provider] - 3-5 Days [facility] [Outside] - 3-5 Days Forms: Work/School Release Form(ED) Time of Disposition: 08:50
== END 2019-04-18 09:09 | disposition home or self-care (01) ==
LOC: ED 06:48
DX: K02.9 Dental caries, unspecified (principal); J45.909 Unspecified asthma, uncomplicated; K21.9 Gastro-esophageal reflux disease without esophagitis; F17.200 Nicotine dependence, unspecified, uncomplicated; Z98.890 Other specified postprocedural states; Z79.899 Other long term (current) drug therapy; Z88.0 Allergy status to penicillin
CPT/HCPCS: 99282

== ENCOUNTER 2019-10-05 02:43 | Emergency (ER) | payer OTHER ==
[2019-10-05] MEDS ORDERED: HYDROcodone/ACETAMINOPHEN 5-325 MG TAB PO ONE (04:17)
[2019-10-05 04:26] LABS: Basophils # (Auto) 0.1 K/mm3 (0.0-0.1); Basophils % (Auto) 0.8 % (0.0-1.8); Eosinophils # (Auto) 0.6 K/mm3 (0.0-0.4); Eosinophils % (Auto) 6.8 % (0.0-4.3); Hematocrit 41.5 % (30.3-42.9); Hemoglobin 14.1 gm/dl (10.1-14.3); Lymphocytes # (Auto) 3.2 K/mm3 (1.2-5.4); Lymphocytes % (Auto) 35.1 % (13.4-35.0); Mean Corpuscular HGB Conc 34 % (30-34); Mean Corpuscular Volume 98 fl (79-97); Monocytes # (Auto) 0.7 K/mm3 (0.0-0.8); Monocytes % (Auto) 7.6 % (0.0-7.3); Platelet Count 182 K/mm3 (140-440); Red Blood Count 4.22 M/mm3 (3.65-5.03); Red Cell Distribution Width 13.2 % (13.2-15.2)
[2019-10-05 04:46] LABS: BUN/Creatinine Ratio 22; Blood Urea Nitrogen 20 mg/dL (7-17); Calcium 9.1 mg/dL (8.4-10.2); Hemolysis Index 12
[2019-10-05] MEDS ORDERED: SODIUM CHLORIDE 0.9% 1000 ML 1,000 ML IV ONE (06:44)
[2019-10-05] MEDS ORDERED: MORPHINE 4 MG/1 ML INJ IV ONE (06:44)
[2019-10-05] MEDS ORDERED: INSULIN REGULAR, HUMAN 100 UNITS/1 ML IV ONE (06:44)
--- NOTE | 2019-10-05 06:47 | Emergency Department Report ---
ED General Adult HPI - General Chief complaint: Extremity Injury, Upper Stated complaint: RT ARM PAIN Time Seen by Provider: 10/05/19 06:07 Source: patient, EMS (EMS records not available at this time for chart dictation or review.), RN notes reviewed Mode of arrival: Ambulatory Limitations: Physical Limitation - History of Present Illness Initial comments: During the history and physical examination, I am dumper bulk system and escorted by nurse Melina Collins Patient is a 33-year-old female who is right-hand dominant with a history of GERD, obesity, diabetes, neuropathy, IBS, reports that she is not , reports history of salpingectomy, an adrenal tumor removal The patient presents to the ER with a primary complaint of nontraumatic right hand pain and subjective swelling. She also has numbness on her fingertips. There is no trauma. She uses her left upper extremity for work-related activities. She feels no weakness, and subjectively feels that her right upper extremity is swollen. Also describes burning lightening like pain coming from her proximal shoulder down to her right upper extremity. There is no complaint of headache, neck pain, chest pain. She is found to have abdominal pain on review of systems and on physical examination. She denies irritative and obstructive urinary symptoms. There is no endorsement of lower extremity weakness and/or numbness. There is no endorsement of left upper extremity weakness. Symptoms constant for the past 12-14 hours. Pain increases with palpation and range of motion. It decreases with rest. The patient also endorses nontraumatic ecchymosis on her left proximal thigh, left medial thigh, and left posterior elbow. She states that this is new. -: Gradual Location: left, right, upper extremity, lower extremity Severity scale (0 -10): 10 Quality: other Consistency: other Improves with: other Worsens with: other Associated Symptoms: other - Related Data Previous Rx's Medication Instructions Recorded Last Taken Type Amitriptyline [Elavil] 10 mg PO QHS #30 tablet 05/19/17 Unknown Rx Dicyclomine [Bentyl] 10 mg PO QID PRN #30 capsule 05/19/17 Unknown Rx Esomeprazole Magnesium [NexIUM 40 mg PO DAILY 10 Days #10 12/12/17 Unknown Rx 24Hr] capsule. Ondansetron [Zofran Odt] 4 mg PO Q8HR PRN #15 tab.rapdis 03/29/18 Unknown Rx methylPREDNISolone [Medrol] 4 mg PO DAILY 6 Days #1 tab.ds.pk 12/12/17 Unknown Rx Acetaminophen/Codeine [Tylenol 1 tab PO Q6H #10 tab 04/18/19 Unknown Rx /Codeine # 3 tab] diphenhydrAMINE [Benadryl CAP] 25 mg PO Q6HR PRN #12 06/09/19 Unknown Rx Acetaminophen [Non-Aspirin Extra 500 mg PO Q6HR PRN #30 tablet 10/05/19 Unknown Rx Strength] Ibuprofen [Motrin] 600 mg PO Q8H PRN #30 tablet 10/05/19 Unknown Rx Allergies Allergy/AdvReac Type Severity Reaction Status Date / Time amoxicillin Allergy Hives Verified 06/09/19 14:31 glipizide Allergy Hives Verified 06/09/19 14:31 Penicillins Allergy Swelling Verified 05/05/14 14:54 ED Review of Systems ROS: Stated complaint: RT ARM PAIN Other details as noted in HPI Constitutional: malaise. denies: fever Eyes: denies: eye discharge ENT: denies: congestion Respiratory: denies: wheezing Cardiovascular: denies: syncope Gastrointestinal: abdominal pain. denies: nausea Musculoskeletal: arthralgia, myalgia Skin: lesions Neurological: numbness. denies: weakness Psychiatric: anxiety Hematological/Lymphatic: other. denies: easy bleeding ED Past Medical Hx - Past Medical History Previous Medical History?: Yes Hx Congestive Heart Failure: No Hx Diabetes: Yes Hx Pulmonary Embolism: No Hx Asthma: Yes Hx COPD: No Additional medical history: GERD, Neuropathy in hands and feet. IBS - Surgical History Past Surgical History?: Yes Additional Surgical History: x 2, Bilateral Salpingectomy. Adrenal tumor removal - Social History Smoking Status: Current Every Day Smoker Substance Use Type: None - Medications Home Medications: Home Medications Medication Instructions Recorded Confirmed Last Taken Type Amitriptyline [Elavil] 10 mg PO QHS #30 tablet 05/19/17 Unknown Rx Dicyclomine [Bentyl] 10 mg PO QID PRN #30 capsule 05/19/17 Unknown Rx Esomeprazole Magnesium [NexIUM 40 mg PO DAILY 10 Days #10 12/12/17 Unknown Rx 24Hr] capsule. Ondansetron [Zofran Odt] 4 mg PO Q8HR PRN #15 tab.rapdis 12/12/17 Unknown Rx methylPREDNISolone [Medrol] 4 mg PO DAILY 6 Days #1 tab.ds.pk 12/12/17 Unknown Rx Acetaminophen/Codeine [Tylenol 1 tab PO Q6H #10 tab 04/18/19 Unknown Rx /Codeine # 3 tab] diphenhydrAMINE [Benadryl CAP] 25 mg PO Q6HR PRN #12 06/09/19 Unknown Rx Acetaminophen [Non-Aspirin Extra 500 mg PO Q6HR PRN #30 tablet 10/05/19 Unknown Rx Strength] Ibuprofen [Motrin] 600 mg PO Q8H PRN #30 tablet 10/05/19 Unknown Rx ED Physical Exam - General Limitations: Physical Limitation General appearance: alert, anxious, obese - Head Head exam: Present: atraumatic, normocephalic - Eye Eye exam: Present: normal appearance, EOMI. Absent: nystagmus - ENT ENT exam: Present: normal exam, normal orophraynx, mucous membranes moist, normal external ear exam - Neck Neck exam: Present: normal inspection, full ROM. Absent: tenderness, meningismus - Respiratory Respiratory exam: Present: normal lung sounds bilaterally. Absent: respiratory distress - Cardiovascular Cardiovascular Exam: Present: regular rate, normal rhythm. Absent: bradycardia, tachycardia, irregular rhythm, normal heart sounds, systolic murmur, diastolic murmur, rubs, gallop - GI/Abdominal GI/Abdominal exam: Present: soft, tenderness. Absent: distended, guarding, rebound, rigid, pulsatile mass - Extremities Exam Extremities exam: Present: normal inspection (nonblanching nontender ecchymosis noted on left proximal thigh, left medial thigh, and left posterior tricep.), full ROM, tenderness (there is tenderness noted to the right thenar eminence, right pointer finger, and right middle finger. Thumb opposition intact to the right pointer finger, right middle finger, although limited secondary to pain. FDP, FDS intact in the right pinky, ring, somewhat limited secondary to pain in the right middle finger, ring finger. Lumbricals are intact in the right upper extremity. Sensation is intact to light touch in the deltoid, median, radial, ulnar distribution. Elbow extension and flexion intact. Shoulder abduction, adduction, rotation intact.), other (2+ pulses noted in the bilateral upper and lower extremities. There is no long bony tenderness. The muscular compartments are soft. The pelvis is stable.). Absent: calf tenderness - Back Exam Back exam: Present: normal inspection, full ROM. Absent: tenderness, CVA tenderness (R), CVA tenderness (L), paraspinal tenderness, vertebral tenderness - Neurological Exam Neurological exam: Present: alert, other (there is no facial droop. The tongue is midline. The extraocular movements are intact bilaterally. Moving 4 extremities spontaneously. Sensation is intact to light touch in 4 extremities spontaneously. Age-appropriate mental status.). Absent: motor sensory deficit - Psychiatric Psychiatric exam: Present: anxious - Skin Skin exam: Present: warm, ecchymosis ED Course Vital Signs 10/05/19 10/05/19 10/05/19 02:49 04:23 04:28 Temperature 98.8 F 98.6 F Pulse Rate 94 H 71 Respiratory 18 16 16 Rate Blood Pressure 128/79 Blood Pressure 121/68 [Right] O2 Sat by Pulse 98 100 Oximetry 10/05/19 07:15 Temperature Pulse Rate 69 Respiratory 16 Rate Blood Pressure 109/64 Blood Pressure [Right] O2 Sat by Pulse 100 Oximetry - Reevaluation(s) Reevaluation #1: 10/05/19 07:36 Differential diagnosis, including but not limited to: Tendinopathy, tendinitis, lupus, obstruction, colitis, pancreatitis, diabetic gastroparesis Assessment and plan: 33-year-old female who is a diabetic, with multiple complaints, including nonstenotic right hand pain and subjective swelling, limited range of motion in her right pointer finger and middle finger, secondary to pain, without obvious redness, warmth, swelling, also with new onset ecchymosis. The patient is afebrile with reassuring vital signs. Also has incidental abdominal tenderness. We will treat her pain, treat her symptoms, obtain appropriate screening laboratory studies, obtain CT scan right upper extremity, CT scan abdomen and pelvis, right upper x-rays, right upper extremity DVT study, and reassess. Reevaluation #2: 10/05/19 10:31 Patient reassessed. Patient appears to be improved. She is holding a cup of water in her right hand, and is noted to be ranging the digits in her right fingers without difficulty. X-rays negative for fracture, dislocation. CT scan abdomen and pelvis negative for acute surgical disease. CT scan hand shows no fracture, dislocation, cellulitis, abscess, or fluid collection. Reevaluation #3: 10/05/19 11:35 The patient is reassessed. She feels more comfortable. Lumbricals are intact. FDP, FDS intact pinky, middle, ring finger. Still having some pain with range of motion in the right middle finger. FDP, FDS somewhat intact, but range of motion is limited secondary to pain in the right middle finger. Patient speaking in a cell phone, and appears to be more comfortable. Right middle finger splint/immobilizer ordered, and right upper extremity short volar splint ordered. Sodium to follow up with outpatient orthopedics and/or hand surgery. Belly soft on repeat examination. No neurovascular deficits have been demonstrated to my exam. Pulses remain intact. No additional ecchymosis have been noted to my exam. Her coagulation parameters, liver function tests are unremarkable. A knee screen is not returned yet. She can follow-up with her outpatient primary care doctor for further workup of her ecchymosis. 10/05/19 11:37 ED Medical Decision Making - Lab Data Result diagrams: 10/05/19 03:43 10/05/19 03:43 Vital Signs 10/05/19 10/05/19 10/05/19 02:49 04:23 04:28 Temperature 98.8 F 98.6 F Pulse Rate 94 H 71 Respiratory 18 16 16 Rate Blood Pressure 128/79 Blood Pressure 121/68 [Right] O2 Sat by Pulse 98 100 Oximetry 10/05/19 07:15 Temperature Pulse Rate 69 Respiratory 16 Rate Blood Pressure 109/64 Blood Pressure [Right] O2 Sat by Pulse 100 Oximetry Lab Results 10/05/19 10/05/19 10/05/19 Range/Units 03:40 03:43 03:43 WBC 9.2 (4.5-11.0) K/mm3 RBC 4.22 (3.65-5.03) M/mm3 Hgb 14.1 (10.1-14.3) gm/dl Hct 41.5 (30.3-42.9) % MCV 98 H (79-97) fl MCH 34 H (28-32) pg MCHC 34 (30-34) % RDW 13.2 (13.2-15.2) % Plt Count 182 (140-440) K/mm3 Lymph % (Auto) 35.1 H (13.4-35.0) % [place] % (Auto) 7.6 H (0.0-7.3) % Eos % (Auto) 6.8 H (0.0-4.3) % Baso % (Auto) 0.8 (0.0-1.8) % Lymph # 3.2 (1.2-5.4) K/mm3 [place] # 0.7 (0.0-0.8) K/mm3 Eos # 0.6 H (0.0-0.4) K/mm3 Baso # 0.1 (0.0-0.1) K/mm3 Seg Neutrophils % 49.7 (40.0-70.0) % Seg Neutrophils # 4.6 (1.8-7.7) K/mm3 PT (12.2-14.9) Sec. INR (0.87-1.13) APTT (24.2-36.6) Sec. Sodium 137 (137-145) mmol/L Potassium 4.4 (3.6-5.0) mmol/L Chloride 102.5 (98-107) mmol/L Carbon Dioxide 22 (22-30) mmol/L Anion Gap 17 mmol/L BUN 20 H (7-17) mg/dL Creatinine 0.9 (0.7-1.2) mg/dL Estimated GFR > 60 ml/min BUN/Creatinine Ratio 22 % Glucose 348 H (65-100) mg/dL POC Glucose 311 H (70-105) Lactic Acid (0.7-2.0) mmol/L Calcium 9.1 (8.4-10.2) mg/dL Magnesium (1.7-2.3) mg/dL Total Bilirubin (0.1-1.2) mg/dL AST (5-40) units/L ALT (7-56) units/L Alkaline Phosphatase (35-129) units/L Total Creatine Kinase (30-135) units/L C-Reactive Protein (0.00-1.30) mg/dL Total Protein (6.3-8.2) g/dL Albumin (3.9-5) g/dL Albumin/Globulin Ratio % Lipase (13-60) units/L HCG, Quant (0-4) mIU/mL 0110/05/19 10/05/19 Range/Units 06:51 06:51 06:51 WBC (4.5-11.0) K/mm3 RBC (3.65-5.03) M/mm3 Hgb (10.1-14.3) gm/dl Hct (30.3-42.9) % MCV (79-97) fl MCH (28-32) pg MCHC (30-34) % RDW (13.2-15.2) % Plt Count (140-440) K/mm3 Lymph % (Auto) (13.4-35.0) % [place] % (Auto) (0.0-7.3) % Eos % (Auto) (0.0-4.3) % Baso % (Auto) (0.0-1.8) % Lymph # (1.2-5.4) K/mm3 [place] # (0.0-0.8) K/mm3 Eos # (0.0-0.4) K/mm3 Baso # (0.0-0.1) K/mm3 Seg Neutrophils % (40.0-70.0) % Seg Neutrophils # (1.8-7.7) K/mm3 PT 14.3 (12.2-14.9) Sec. INR 1.10 (0.87-1.13) APTT 27.8 (24.2-36.6) Sec. Sodium (137-145) mmol/L Potassium (3.6-5.0) mmol/L Chloride (98-107) mmol/L Carbon Dioxide (22-30) mmol/L Anion Gap mmol/L BUN (7-17) mg/dL Creatinine (0.7-1.2) mg/dL Estimated GFR ml/min BUN/Creatinine Ratio % Glucose (65-100) mg/dL POC Glucose (70-105) Lactic Acid 0.90 (0.7-2.0) mmol/L Calcium (8.4-10.2) mg/dL Magnesium 2.00 (1.7-2.3) mg/dL Total Bilirubin 0.20 (0.1-1.2) mg/dL AST 10 (5-40) units/L ALT 10 (7-56) units/L Alkaline Phosphatase 52 (35-129) units/L Total Creatine Kinase 56 (30-135) units/L C-Reactive Protein 0.30 (0.00-1.30) mg/dL Total Protein 7.0 (6.3-8.2) g/dL Albumin 4.1 (3.9-5) g/dL Albumin/Globulin Ratio 1.4 % Lipase 56 (13-60) units/L HCG, Quant (0-4) mIU/mL 10/05/19 10/05/19 Range/Units 06:51 07:29 WBC (4.5-11.0) K/mm3 RBC (3.65-5.03) M/mm3 Hgb (10.1-14.3) gm/dl Hct (30.3-42.9) % MCV (79-97) fl MCH (28-32) pg MCHC (30-34) % RDW (13.2-15.2) % Plt Count (140-440) K/mm3 Lymph % (Auto) (13.4-35.0) % [place] % (Auto) (0.0-7.3) % Eos % (Auto) (0.0-4.3) % Baso % (Auto) (0.0-1.8) % Lymph # (1.2-5.4) K/mm3 [place] # (0.0-0.8) K/mm3 Eos # (0.0-0.4) K/mm3 Baso # (0.0-0.1) K/mm3 Seg Neutrophils % (40.0-70.0) % Seg Neutrophils # (1.8-7.7) K/mm3 PT (12.2-14.9) Sec. INR (0.87-1.13) APTT (24.2-36.6) Sec. Sodium (137-145) mmol/L Potassium (3.6-5.0) mmol/L Chloride (98-107) mmol/L Carbon Dioxide (22-30) mmol/L Anion Gap mmol/L BUN (7-17) mg/dL Creatinine (0.7-1.2) mg/dL Estimated GFR ml/min BUN/Creatinine Ratio % Glucose (65-100) mg/dL POC Glucose 229 H (70-105) Lactic Acid (0.7-2.0) mmol/L Calcium (8.4-10.2) mg/dL Magnesium (1.7-2.3) mg/dL Total Bilirubin (0.1-1.2) mg/dL AST (5-40) units/L ALT (7-56) units/L Alkaline Phosphatase (35-129) units/L Total Creatine Kinase (30-135) units/L C-Reactive Protein (0.00-1.30) mg/dL Total Protein (6.3-8.2) g/dL Albumin (3.9-5) g/dL Albumin/Globulin Ratio % Lipase (13-60) units/L HCG, Quant < 2 (0-4) mIU/mL - EKG Data -: EKG Interpreted by Me EKG shows normal: sinus rhythm Rate: normal - EKG Data 10/05/19 07:38 The EKG today shows a sinus rhythm, 69 bpm, motion artifact, QTC 429 ms, the EKG does not have a prior for comparison, and it's not consistent with a stemi - Radiology Data Radiology results: pending Critical care attestation.: If time is entered above; I have spent that time in minutes in the direct care of this critically ill patient, excluding procedure time. ED Disposition Clinical Impression: Abdominal pain, Hyperglycemia, Right arm pain, History of tendonitis Disposition: - TO HOME OR SELFCARE Is pt being admited?: No Does the pt Need Aspirin: No Condition: Stable Additional Instructions: Keep the volar splint in place, and right middle finger splint in place. Rest, avoid heavy lifting, and avoid strenuous physical activities. Recommend following up with orthopedic or hand surgeon within the next 3-[address] Murphy is a local orthopedic surgeon. Participate in physical activities as tolerated, and avoid heavy lifting. Do not take metformin medication for the next 2 days, if patient takes this medication. Recommend following up with an outpatient primary care doctor for high blood sugar, and black and blue skin sawant within the next 3 and 5 days. Alternatively, the patient may follow-up with her hematology doctor, such as Dr. Kemp, within the next 5-7 days for further evaluation of black and blue skin sawant. Lupus screening laboratory tests were sent today, and results will be available in the next 3-5 days. Please have your primary care doctor contact the medical records department to obtain these laboratory studies and follow-up. Please return to the emergency room right away with projectile vomiting, change in mental status, confusion, inability to tolerate liquid feeds, new, worsening or different symptoms not present on the initial emergency room evaluation. Referrals: RUBI MURPHY MD [Staff Physician] - 3-5 Days (for right hand and arm pain, for tendonitis) OSMAN KEMP MD [Staff Physician] - 3-5 Days (for new black and blue sawant) [facility] [Provider Group] - 3-5 Days (for right hand pain, black and blue sawant high bloud sugar) Forms: Work/School Release Form(ED)
[2019-10-05 07:18] LABS: INR 1.1 (0.87-1.13); Partial Thromboplastin Time 27.8 Sec. (24.2-36.6)
[2019-10-05 07:28] LABS: Alanine Aminotransferase 10 units/L (7-56); Albumin 4.1 g/dL (3.9-5)
[2019-10-05 08:25] LABS: Bilirubin,Direct < 0.2 mg/dL (0-0.2)
--- NOTE | 2019-10-05 08:39 | XRay Report ---
RIGHT FOREARM 2 VIEWS INDICATION: right hand pain swelling. COMPARISON: None. IMPRESSION: No acute osseous or soft tissue abnormality. No significant DJD. RIGHT HAND 2 VIEWS INDICATION: right hand pain swelling. COMPARISON: None. IMPRESSION: No acute osseous or soft tissue abnormality. No significant DJD. Signer Name: Mahendra Murray Jr, MD Signed: 10/05/2019 8:35 AM Workstation Name: [id number]
--- NOTE | 2019-10-05 09:38 | Cat Scan Report ---
CT ABDOMEN AND PELVIS WITH CONTRAST HISTORY: abd pain tenderness, rue pain, eccmymosis COMPARISON: 12/12/2017 TECHNIQUE: Axial CT images were obtained through the abdomen and pelvis after 100 cc of Omnipaque 300 intravenously. Sagittal and coronal reformatted images. All CT scans at this location are performed using CT dose reduction for ALARA by means of automated exposure control. FINDINGS: CT ABDOMEN: Lung Bases: Clear. Liver: No significant abnormality. Biliary: No significant abnormality. Spleen: No significant abnormality. Unenlarged. Pancreas: No significant abnormality. Adrenals: No significant abnormality. Kidneys: No significant abnormality. Lymphatics: No lymphadenopathy. Vasculature: No significant abnormality. Bowel/Peritoneum: No significant abnormality. No free air. No free fluid. Normal appendix CT PELVIS: : 2.1 cm right ovarian cyst is identified. The uterus and left adnexa are unremarkable. Osseous Structures: No significant abnormality. Additional Findings: None IMPRESSION: 2.1 cm right ovarian cyst. Otherwise, unremarkable CT of the abdomen and pelvis. Signer Name: Mahendra Murray Jr, MD Signed: 10/05/2019 9:33 AM Workstation Name: [id number]
--- NOTE | 2019-10-05 09:39 | Cat Scan Report ---
CT RIGHT UPPER EXTREMITY WITH CONTRAST INDICATION / CLINICAL INFORMATION: rue pain, hand swelling. TECHNIQUE: Axial CT images were obtained through the right upper extremity after 100 mL Omnipaque 300 IV contras t. Coronal and sagittal 2-D reconstruction images were produced. All CT scans at this location are pe rformed using CT dose reduction for ALARA by means of automated exposure control. COMPARISON: Radiographs earlier in the day. FINDINGS: There is mild subcutaneous soft tissue swelling along the posterior aspect of elbow over the olecrano n process. No other focal soft tissue swelling identified. No soft tissue abscess. No acute fracture or subluxation of the right upper extremity. No significant arthritis of the right shoulder right elbow, or right wrist. Incidental note is made of an unfused anterior acromial ossific ation center, os acromiale. IMPRESSION: 1. Mild soft tissue swelling over the posterior elbow. Otherwise, no acute CT abnormality of the righ t upper extremity. Signer Name: Victorina Bowman MD Signed: 10/05/2019 9:35 AM Workstation Name: [id number]
--- NOTE | 2019-10-05 10:04 | Vascular Lab Report ---
RIGHT UPPER EXTREMITY VENOUS DOPPLER ULTRASOUND HISTORY: Right upper extremity pain and swelling COMPARISON: None. TECHNIQUE: Grayscale, color and spectral Doppler imaging of the venous system of the right upper extr emity was performed. FINDINGS: Internal Jugular Vein: Normal grayscale appearance and flow. Subclavian Vein: Normal grayscale appearance and flow. Axillary Vein: Normal venous flow, compressibility and augmentation. Brachial vein: Normal venous flow, compressibility and augmentation. Radial vein: Normal venous flow, compressibility and augmentation. Ulnar vein: Normal venous flow, compressibility and augmentation. Additional Findings: None. IMPRESSION: 1. No sonographic evidence of deep venous thrombosis in the right upper extremity. Signer Name: Mahendra Murray Jr, MD Signed: 10/05/2019 10:00 AM Workstation Name: [id number]
[2019-10-05] MEDS ORDERED: KETOROLAC 30 MG/1 ML INJ IV ONE (10:30)
[2019-10-05 11:10] LABS: Bacteria,Urine 1+ /HPF (Negative); Bilirubin,Urine NEG (Negative); Blood,Urine NEG (Negative); Color,Urine Yellow (Yellow); Mucus,Urine 3+ /HPF; Protein,Urine <15 mg/dL mg/dL (Negative); Urobilinogen,Urine < 2.0 mg/dL (<2.0)
[2019-10-05 12:51] VITALS: BP 127/58
== END 2019-10-05 15:15 | disposition home or self-care (01) ==
LOC: ED 02:43
DX: E11.65 Type 2 diabetes mellitus with hyperglycemia (principal); M79.601 Pain in right arm; R10.9 Unspecified abdominal pain; J45.909 Unspecified asthma, uncomplicated; K21.9 Gastro-esophageal reflux disease without esophagitis; F17.200 Nicotine dependence, unspecified, uncomplicated; Z88.0 Allergy status to penicillin; Z88.8 Allergy status to other drugs, medicaments and biological substances; Z98.890 Other specified postprocedural states; Z87.39 Personal history of other diseases of the musculoskeletal system and connective tissue
CPT/HCPCS: 29125; 36415; 73090; 73120; 73201; 74177; 80048; 80076; 81001; 82140; 82550; 82962; 83690; 83735; 84702; 85025; 85610; 85652; 85730; 86038; 86140; 93005; 93010; 93971; 96361; 96374; 96375; 99285; J1885; J2270; J7030; Q9967; J1815